=== PATIENT | male | born 1980 | race Two or more races ===

== ENCOUNTER 2021-12-23 13:19 | Emergency (ER) | payer OTHER, SELFPAY ==
[2021-12-23 13:20] VITALS: BP 106/86; PULSE 86; RESP 16; TEMP 36.4; O2SAT 99; BMI 19.8
--- NOTE | 2021-12-23 14:11 | EKG12_ITS ---
Test Reason : CP Blood Pressure : / mmHG Vent. Rate : 083 BPM Atrial Rate : 083 BPM P-R Int : 148 ms QRS Dur : 074 ms QT Int : 354 ms P-R-T Axes : 067 061 062 degrees QTc Int : 415 ms Normal sinus rhythm Normal ECG Confirmed by BALAJI GOFF, URI ([id number]), online content editor HOSSEIN HYDE ([id number]) on 12/24/2021 1:48:30 P M Referred By: ES Confirmed By:ROSEANN CARPIO MD
[2021-12-23 14:47] VITALS: BP 119/79; PULSE 81; RESP 18; O2SAT 100; O2SAT 99
[2021-12-23 14:50] LABS: Absolute Lymphocyte Count 2.12 X10^3/uL (0.83-4.51); Basophil# 0.03 X10^3/uL; Basophil% 0.4 % (0-1); Eosinophil# 0.31 X10^3/uL; Eosinophils% 4.5 % (0-5); Hematocrit 44.7 % (40-54); Hemoglobin 15.4 g/dL (13.0-16.5); Lymphocyte # 2.12 X10^3/ul (0.83-4.51); Lymphocyte % 30.5 % (19-41); Mean Corp Hgb Conc 34.5 g/dL (32-36); Mean Corpuscular Hgb 30.1 pg (27.0-32.0); Mean Corpuscular Volume 87.3 fL (80-94); Mean Platelet Vol. 10.7 fl (6.2-12.0); Monocyte# 0.46 X10^3/uL; Monocyte% 6.6 % (0-10); NRBC Flagged by Analyzer 0 % (0-5); Neutrophil # 4.03 X10^3/uL (2.7-7.7); Neutrophil % 57.9 % (47-70); Platelet Count 252 K/mm3 (150-450); RBC Distribution Width CV 12.4 % (11.6-14.6); RBC Distribution Width SD 39.3 fl (35.1-43.9); Red Blood Count 5.12 M/mm3 (4.6-6.2)
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
[2021-12-23 14:55] LABS: Anion Gap 6 (5-15); BUN 17 mg/dL (7-18); BUN/Creat Ratio 22.8 RATIO (10-20); Calcium,Total 9.9 mg/dL (8.5-10.1); Chloride 107 mmol/L (98-107); Creatinine, Serum 0.75 mg/dL (0.70-1.30); EST Glomerular Filtration Rate 123 mL/min (>60); Est Glom Filt Rate - Afr Amer 149 mL/min (>60); Estimated Creatinine Clearance 103.32 ml/min; Glucose 98 mg/dL (74-106); Sodium Level 141 mmol/L (136-145); Troponin-I HS 3 pg/mL (3.0-78.0)
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
[2021-12-23 15:47] VITALS: BP 119/79; PULSE 81; RESP 18; O2SAT 99
== END 2021-12-23 15:48 | disposition home or self-care (01) ==
PROVIDERS: Emergency Provider Student in an Organized Health Care Education/Training Program; Visit Provider Student in an Organized Health Care Education/Training Program
DX: S20.20XA Contusion of thorax, unspecified, initial encounter (principal); E11.9 Type 2 diabetes mellitus without complications; Z79.84 Long term (current) use of oral hypoglycemic drugs; V43.52XA Car driver injured in collision with other type car in traffic accident, initial encounter
CPT/HCPCS: 71045; 80048; 84484; 85025; 93005; 99284; A4216